=== PATIENT | male | born 1990 | race Caucasian/White ===

== ENCOUNTER 2021-09-11 12:07 | Emergency (ER) | payer OTHER, SELFPAY ==
[2021-09-11 12:18] VITALS: BP 106/59; PULSE 68; RESP 18; TEMP 36.8; O2SAT 99; BMI 34.0
--- NOTE | 2021-09-11 12:22 | XR_ITS ---
WS: [id number] XR wrist LT 2V [id number] REASON FOR EXAM: injury FINDINGS: Nondisplaced fracture through the base of the ulnar styloid. Fracture of the distal radius with transverse, oblique, and vertical components with some compression . A fracture line does extend obliquely through the radial styloid and into the articular surface bet ween the scaphoid and lunate. The scapholunate joint appears intact. Horizontal component of the fracture line exits the radial head medially inferior to the radial ulnar joint. There is no significant fracture fragment displacement or angulation at the fracture site. XR/XR wrist LT 2V [id number] IMPRESSION: Left wrist fracture as above.
--- NOTE | 2021-09-11 13:46 | ED_ITS ---
HPI - Extremity Injury (Upper) General: Chief Complaint: Extremity Injury, Upper Stated Complaint: right wrist injury Time Seen by Provider: 09/11/21 13:46 Source: patient Mode of arrival: ambulatory Limitations: no limitations History of Present Illness: Patient is a nice 31-year-old male who presents to ED today for evaluation of a left wrist injury that he sustained earlier today when he fell off a horse. Patient denies any other injury sustained during the fall. He does report some generalized soreness but no other localized pain apart from his left wrist. He has no complaints of numbness, tingling, loss of sensation. MD complaint: injury to: left and wrist Onset (ago): hour(s) Other Extremity Injury: Left: wrist Other injuries: none Place: outdoors Severity: severe Relieving factors: immobilization Exacerbating factors: movement of extremity Context: fall and direct blow Associated symptoms: Reports no associated symptoms; Denies neck pain or weakness in extremities Review of Systems Card: Denies: chest pain Resp: Denies: dyspnea GI: Denies: abdominal pain Musc: Reports: joint pain (L wrist); Denies: neck pain, back pain or extremity pain Neuro: Denies: headache(s), numbness in extremities, weakness in extremities or sensory changes Physical Exam Const: COMMON NORMALS: average body habitus, patient oriented x3, no limitations, healthy appearing, alert and well nourished GENERAL APPEARANCE: cooperative and in distress (uncomfortable secondary to L wrist pain) ORIENTATION/CONSCIOUSNESS: Yes awake, Yes oriented to person, Yes oriented to place and Yes oriented to time HENMT: COMMON NORMALS: normocephalic and atraumatic HEAD & SCALP: normal to inspection, normocephalic and atraumatic Neck/C-Spine: COMMON NORMALS: full ROM CERVICAL SPINE: No pain with cervical ROM and No Cervical spine tenderness Resp: COMMON NORMALS: normal respiratory effort Back/Pelvis: COMMON NORMALS: thoracic and lumbar spine normal to inspection, no thoracic nor lumbar tenderness and thoraco-lumbar ROM normal Extremity: COMMON NORMALS: capillary refill normal GENERAL: Yes normal exam except as noted LEFT UPPER EXTREMITY: Yes wrist (TTP distal L wrist) Left wrist: Yes inspection (no obviously bony deformity; swelling), Yes ROM (limited ROM secondary to pain) and Yes neurovascular exam (normal) Neuro: AYDEE COMA SCALE: document [facility]CS findings [place] coma scale eye opening: Spontaneous Aydee coma scale verbal response: Orientated [place] coma scale motor response: Obey commands Aydee coma scale total score: 15 COMMON NORMALS: patient oriented x3, moves all extremities, no focal motor deficits and no sensory deficits noted SENSORIUM/ORIENTATION: Yes alert, Yes oriented to person, Yes oriented to place and Yes oriented to time Skin: COMMON NORMALS: no rashes or lesions noted GENERAL SKIN EXAM: no rashes or lesions noted TRAUMA: no lacerations or abrasions Course Vital Signs: Vital signs: Vital Signs Temperature 98.2 F 09/11/21 12:18 Pulse Rate 68 09/11/21 12:18 Respiratory Rate 18 09/11/21 12:18 Blood Pressure 106/59 09/11/21 12:18 Pulse Oximetry 99 09/11/21 12:18 MDM - Extremity Injury (Upper) Medical Decision Making XR showing intra-articular distal radial fracture. Also commented on ulnar styloid fracture which I do not appreciate. Will place in splint and have him follow up with orthopedics. Lab Data Radiology Impressions Wrist X-Ray 09/11/21 12:22 IMPRESSION: Left wrist fracture as above. Discharge Plan Discharge Patient Disposition: Home Clinical Impression: Fracture of distal end of left radius Qualifiers: Encounter type: initial encounter Fracture type: closed Fracture morphology: other intra-articular Qualified Code(s): S52.572A - Other intraarticular fracture of lower end of left radius, initial encounter for closed fracture Condition: Stable Prescriptions: New hydrocodone-acetaminophen 5-325 mg tablet 1 tab PO .q4-6 PRN (Reason: pain) Qty: 15 0RF Discharge Orders: Discharge ED (Routine); Ordered 09/11/21 Ordered By: Carley Martin Patient Instructions: Opioid Safety Activity Restrictions/Additional Instructions: As we discussed case management should contact you shortly to set you up with your follow-up orthopedic appointment. Coding Level of Care Code ED System Development Manager for Asmita Boyer
[2021-09-11 14:03] VITALS: RESP 18
[2021-09-11] MEDS: morphine 4 mg/mL SDV 1 mL IM (14:03)
--- NOTE | 2021-09-11 15:54 | DCPLANNER ---
Addendum entered by Aleshia Weber 09/19/21 11:33: Patient had a follow up appointment scheduled for 09.12.[address] Stark at ortho - patient did attend appointment. Original Note: bed manager had message to schedule a follow up appointment for patient with ortho. bed manager sent patients information to the front office staff at ortho. Patients information will be printed and reviewed. Clinic will call patient with appointment information.
== END 2021-09-11 14:22 | disposition home or self-care (01) ==
PROVIDERS: Emergency Provider Physician Assistant
DX: S52.572A Other intraarticular fracture of lower end of left radius, initial encounter for closed fracture (principal); V80.010A Animal-rider injured by fall from or being thrown from horse in noncollision accident, initial encounter
CPT/HCPCS: 29125; 73100; 96372; 99284; J2270

== ENCOUNTER → 2021-09-12 08:47 | Outpatient (BNVA) | payer OTHER, SELFPAY | PROVIDERS: Visit Provider Specialist | DX: S52.572A Other intraarticular fracture of lower end of left radius, initial encounter for closed fracture (principal) | CPT/HCPCS: 73110 ==

== ENCOUNTER 2021-09-12 13:51 | Outpatient (CLI) | payer OTHER, SELFPAY | END 2021-09-12 13:52 | disposition home or self-care (01) | LOC: SPT 13:52 | PROVIDERS: Visit Provider Specialist | DX: Z46.89 Encounter for fitting and adjustment of other specified devices (principal); S52.572D Other intraarticular fracture of lower end of left radius, subsequent encounter for closed fracture with routine healing; X58.XXXD Exposure to other specified factors, subsequent encounter | CPT/HCPCS: 97760; L3982 ==

== ENCOUNTER → 2021-10-03 15:36 | Outpatient (BNVA) | payer OTHER, SELFPAY | PROVIDERS: Visit Provider Specialist | DX: S52.502A Unspecified fracture of the lower end of left radius, initial encounter for closed fracture (principal); S52.602A Unspecified fracture of lower end of left ulna, initial encounter for closed fracture | CPT/HCPCS: 73110 ==

== ENCOUNTER → 2021-11-05 14:45 | Outpatient (BNVA) | payer OTHER, SELFPAY | PROVIDERS: Visit Provider Specialist | DX: S52.502D Unspecified fracture of the lower end of left radius, subsequent encounter for closed fracture with routine healing (principal); S52.602D Unspecified fracture of lower end of left ulna, subsequent encounter for closed fracture with routine healing; X58.XXXD Exposure to other specified factors, subsequent encounter | CPT/HCPCS: 73110 ==

== ENCOUNTER → 2021-11-12 08:04 | Outpatient (BNVA) | payer OTHER, SELFPAY | PROVIDERS: Visit Provider Specialist | DX: S52.502D Unspecified fracture of the lower end of left radius, subsequent encounter for closed fracture with routine healing (principal); S52.602D Unspecified fracture of lower end of left ulna, subsequent encounter for closed fracture with routine healing; X58.XXXD Exposure to other specified factors, subsequent encounter | CPT/HCPCS: 73110 ==

== ENCOUNTER 2024-10-29 17:22 | Outpatient (CLI) | payer OTHER, SELFPAY ==
--- NOTE | 2024-10-29 17:15 | US_ITS ---
WS: [id number] ULTRASOUND SOFT TISSUES RIGHT forearm HISTORY: S59.914H - Unspecified injury of right forearm, initial e... COMPARISON: None available. TECHNIQUE: 2-D and color Doppler imaging is submitted. Palpable area along the anterior RIGHT forearm. There is a very superficial tiny hypoechoic nodule measuring 0.5 x 0.2 x 0.4 cm in the subcutaneous soft tissues. There is no superficial tract. This is a very nonspecific finding. Just deep to this very small superficial nodule is a 3.8 x 1.0 cm ovoid predominately hypoechoic mass with a few echogenic striations which may be a small lipoma. No increased vascularity. US/US soft tissue/extremity [id number] IMPRESSION: 1. Suspect small lipoma along the anterior RIGHT forearm. 2. There is additional more superficial hypoechoic nodule which is very nonspe cific and benign in appearance. May be from prior trauma.
== END 2024-10-29 17:23 | disposition home or self-care (01) ==
LOC: RAD 17:25
PROVIDERS: PCP Nurse Practitioner Family; Visit Provider Nurse Practitioner Family
DX: S59.911A Unspecified injury of right forearm, initial encounter (principal); T14.8XXA Other injury of unspecified body region, initial encounter; M79.631 Pain in right forearm; M79.89 Other specified soft tissue disorders; S50.11XA Contusion of right forearm, initial encounter; X58.XXXA Exposure to other specified factors, initial encounter
CPT/HCPCS: 76882

== ENCOUNTER 2024-11-19 14:13 | Outpatient (CLI) | payer OTHER, SELFPAY ==
--- NOTE | 2024-11-19 14:30 | MR_ITS ---
WS: [id number] MRI RIGHT FOREARM WITHOUT CONTRAST. COMPARISON: Ultrasound 10/29/2024 Multiplanar, multisequence imaging is performed without contrast. Imaging centered over the forearm at the site of the palpable abnormality. There is a very superficial soft tissue edema along the muscles of the forearm at the site of the palpable abnormality. This is most consistent with soft tissue contusion. There is no mass identified. No fatty tumor. Signal within the bone is normal. No displacement of the muscles. No muscle edema. MR/MR forearm RT wo con* [id number] IMPRESSION: 1. Superficial soft tissue stranding at the site of the recent injury is most consistent with a minimal contusion. 2. No lipoma or fatty mass identified. 3. No muscle contusion or edema or hemorrhage.
== END 2024-11-19 14:14 | disposition home or self-care (01) ==
LOC: RAD 14:13
PROVIDERS: PCP Nurse Practitioner Family; Visit Provider Nurse Practitioner Family
DX: S59.911A Unspecified injury of right forearm, initial encounter (principal); T14.8XXA Other injury of unspecified body region, initial encounter; M79.631 Pain in right forearm; M79.89 Other specified soft tissue disorders; M79.609 Pain in unspecified limb; X58.XXXA Exposure to other specified factors, initial encounter
CPT/HCPCS: 73218